=== PATIENT | male | born 1955 | race Two or more races ===

== ENCOUNTER 2018-12-30 09:26 | Emergency (ER) | payer OTHER ==
[2018-12-30 09:35] VITALS: BP 101/53
--- NOTE | 2018-12-30 10:12 | UC ---
Lower Extremity/Ankle HPI - HPI Summary HPI Summary: today pt fell frm 7-8 feet off of a ladder and injured lt ankle. reports swelling, pain, and some bruising. feels like he can't walk. - History of Current Complaint Chief Complaint: UCLowerExtremity Stated Complaint: LEG INJURY Time Seen by Provider: 12/30/18 10:05 Hx Obtained From: Patient Pain Intensity: 6 Pain Scale Used: 0-10 Numeric Aggravating Factor(s): Standing, Ambulation Alleviating Factor(s): Nothing - Allergies/Home Medications Allergies/Adverse Reactions: Allergies Allergy/AdvReac Type Severity Reaction Status Date / Time No Known Allergies Allergy Verified 12/30/18 09:35 PMH/Surg Hx/FS Hx/Imm Hx - Additional Past Medical History Additional PMH: no chronic conditions. Previously Healthy: Yes - Surgical History Surgical History: Yes Surgery Procedure, Year, and Place: 2013 RT HAND INJURY [place]. 2014 RT HAND FOREIGN BODY REMOVED [place] - Social History Alcohol Use: Occasionally Alcohol Amount: 1-2 BEERS/MONTH AT THE MOST Substance Use Type: None Smoking Status (MU): Former Smoker Amount Used/How Often: 1/2PPD OR LESS PER DAY 30 YRS Have You Smoked in the Last Year: No When Did the Patient Quit Smoking/Using Tobacco: 2009 Review of Systems All Other Systems Reviewed And Are Negative: Yes Skin: Positive: Bruising Motor: Positive: Decreased ROM - L ankle. Musculoskeletal: Positive: Arthralgia - L ankle., Decreased ROM - L ankle., Edema - L ankle.. Negative: Other: - denies back/hip pain Neurological: Negative: Weakness, Paresthesia Physical Exam Triage Information Reviewed: Yes Appearance: Well-Appearing Vital Signs: Initial Vital Signs Temp 98.3 F 12/30/18 09:31 Pulse 60 12/30/18 09:31 Resp 18 12/30/18 09:31 BP 101/53 12/30/18 09:31 Pulse Ox 97 12/30/18 09:31 Vital Signs Reviewed: Yes Cardiovascular: Positive: Brisk Capillary Refill - L toes Musculoskeletal: Positive: Strength Limited @ - L ankle. due to pain, ROM Limited @ - L ankle. due to pain, Edema @ - L ankle., Other: - NO BACK OR HIP TENDERNESS Neurological: Positive: Alert, Muscle Tone Normal Skin: Positive: Other - bruising at lateral aspect of ankle. Lower Extremity Course/Dx - Course Course Of Treatment: L calcaneal fracture after fall from ladder approx 7-8ft high. on xray appears to be comminuted. no back or hip involvement today; vitals good. neurovasculary intact at L foot. consulted w certified medication technician ortho/dr. mario who recommended CT and post. splint w/ web wrap/monica wrap layering to help w/ swelling. orin medication sent. - Differential Dx/Diagnosis Differential Diagnosis/HQI/PQRI: Contusion, Fracture (Closed), Fracture (Open) Provider Diagnosis: Calcaneal fracture Discharge - Sign-Out/Discharge Documenting (check all that apply): Patient Departure All imaging exams completed and their final reports reviewed: Yes - Discharge Plan Condition: Good Disposition: HOME Prescriptions: HYDROcodo/Acetam5/325MG PREPAK [HYDROcodone/ACETAMIN 5-325 MG* PREPAK] 1 tab PO Q6HR 7 Days #28 dae Ibuprofen [Ibu] 600 mg PO Q6HR 7 Days #28 tablet Patient Education Materials: Calcaneal Fracture (ED) Forms: *Work Release Referrals: Evan Mario MD [Medical Doctor] - 2 Days (LEFT CALCANEAL FRACTURE, NO BACK PAIN. SEE IMAGING. HOPING TO HAVE HIM SEEN tuesday) Additional Instructions: You should see the bone doctor on Tuesday for evaluation. - Billing Disposition and Condition Condition: GOOD Disposition: Home
== END 2018-12-30 12:15 | disposition home or self-care (01) ==
LOC: UCEAST 09:26
DX: S92.002A Unspecified fracture of left calcaneus, initial encounter for closed fracture (principal); W11.XXXA Fall on and from ladder, initial encounter; Y92.9 Unspecified place or not applicable; Z87.891 Personal history of nicotine dependence
CPT/HCPCS: 99212; G0463

== ENCOUNTER 2019-01-04 11:02 | Day surgery (SDC) | payer OTHER ==
[~2019-01-04 11:02] MED LIST: Buffered Lidocaine 1% SYRIN* 1 ML/SYRINGE INTRADERM ONE; Dexamethasone IV* 4 MG/ML 1 ML (4 MG) IV SLOW PU ONE; DiMENhydriNATE IV* 50 MG/ML VIAL IV PUSH PRN; Famotidine IV* 10 MG/ML 2 ML (20 mg) IV ONE; HYDROcodone/ACETAMIN 5-325 MG* 1 TAB PO PRN; Ketorolac INJ* 30 MG/ML 1 ML VIAL IV PRN; Lactated Ringers 1000 ML Bag* 1,000 ML IV SCH; Naloxone* 0.4 MG/ML 1 ML VIAL IV PRN; fentaNYL* 50 MCG/ML 2 ML VIAL (100 MCG VIAL) IV PRN; oxyCODONE/Acetamin 5/325 MG* TAB PO PRN
[2019-01-04] MEDS ORDERED: Dexamethasone IV* 4 MG/ML 1 ML (4 MG) ONE (11:21)
[2019-01-04] MEDS ORDERED: Famotidine IV* 10 MG/ML 2 ML (20 mg) ONE (11:21)
[2019-01-04] MEDS ORDERED: ceFAZolin 2 GM PREMIX in ORs 2 GM/50 ML BAG IVPB ONE (11:21)
[2019-01-04] MEDS ORDERED: Lidocaine 2% PF * 5 ML VIAL ONE (13:04)
[2019-01-04] MEDS ORDERED: fentaNYL* 50 MCG/ML 2 ML VIAL (100 MCG VIAL) ONE ×2 (13:04→15:37)
[2019-01-04] MEDS ORDERED: Propofol* 10 MG/ML 20 ML BTL ONE (13:04)
[2019-01-04] MEDS ORDERED: Midazolam* 1 MG/ML 2 ML VIAL (2 MG) ONE (13:04)
[2019-01-04] MEDS ORDERED: Bupivacaine 0.25% SDV PF* 10 ML VIAL INJ ONE (13:50)
[2019-01-04] MEDS ORDERED: EPHEDrine (Pressors)* 50 MG/ML VIAL ONE (14:16)
[2019-01-04] MEDS ORDERED: Ketorolac INJ* 30 MG/ML 1 ML VIAL ONE (14:33)
[2019-01-04] MEDS ORDERED: Ondansetron INJ* 2 MG/ML VIAL ONE (15:17)
--- NOTE | 2019-01-04 16:18 | OP ---
Operative Report - Blank - Operative Report Date of Operation: 01/04/19 Note: PATIENT: Veto Maya DATE OF : 1955 DATE OF SURGERY: 01/04/2019 SURGEON: Abhijeet Reynolds MD EVENT DECORATOR AND DESIGNER: NGA Grubbs, whos assistance was necessary for positioning, retraction, help with instrumentation, and closure. ANESTHESIOLOGIST: Dr. Parish Squires PREOPERATIVE DIAGNOSIS: Left calcaneus fracture POSTOPERATIVE DIAGNOSIS: Left calcaneus fracture OPERATION: Left calcaneus fracture open reduction and internal fixation. ANESTHESIA: General IMPLANTS: Arthrex comprehensive foot set plate and screws. TOURNIQUET TIME: Less than two hours with a well-padded thigh tourniquet at 250mmHg SPECIMENS: none ESTIMATED BLOOD LOSS: minimal COMPLICATIONS: none STATUS: Stable from the operating room to the recovery room and then home. INDICATIONS FOR PROCEDURE: Veto sustained a displaced calcaneus fracture. Both operative and non-operative treatment alternatives were reviewed. Further, the nature and risks of surgery were reviewed in careful detail, in the office as well as the pre-operative holding area. Our discussions regarding the risks of surgery included, but were not limited to, infection, wound problems, nerve injury, neuroma, RSD, persistent symptoms, blood clot, loss of fixation and reduction, malunion, nonunion, posttraumatic arthritis, persistent pain, skin breakdown, need for further surgery, failure of the surgery, and even the remote chance of catastrophic complication, including loss of limb. DESCRIPTION OF PROCEDURE: The patient was seen in the preoperative holding unit and informed written consent was obtained. The appropriate extremity was marked. The patient was then brought to the operating room and carefully positioned on the operating room table. Anesthesia was induced. All bony prominences were padded with great care. A well-padded thigh tourniquet was placed. A chlorhexidine based pre- scrub was performed followed by a chloraprep prep and drape in standard sterile fashion. A surgical safety pause was then conducted in which we confirmed the appropriate patient, extremity, planned procedure, availability of equipment, indication and administration of prophylactic antibiotics, and DVT prophylaxis in the form of a compression boot on the non-surgical extremity. I began with an Esmarch exsanguination of the limb and inflated the tourniquet. I utilized a sinus tarsi incision at the lateral hindfoot. I carefully dissected down to the level of the subtalar joint, making sure to protect the peroneal tendons. I exposed the fractures and used a Irizarry to loosen up the fracture fragments. Irrigation was used to remove fracture hematoma. I then reduced the fragments that involved the posterior facet. I placed K wires to hold the reduction. I then placed guidewires for 4.0 mm cannulated screws. The placement was confirmed fluoroscopically, measured, overdrilled, and screws were placed. This held the posterior facet well reduced. I then placed a Steinmann pin into the posterior aspect calcaneus to lever this fragment out of varus. Once this was achieved, k-wires were used to provisionally hold the reduction. I then placed an Arthrex calcaneus fracture plate laterally. Screws were placed through the plate into the fracture fragments. This held the calcaneus in satisfactory alignment. At this point, all provisional fixation was removed and final fluoroscopic images were obtained. I directly visualized the posterior facet of the calcaneus, and confirmed that no hardware crossed into the joint. The wound was then copiously irrigated and meticulously closed in layers utilizing 3-0 Monocryl and 3-0 Nylon for the skin. A sterile dressing was then applied followed by a splint with the ankle in a neutral position. The patient was then awakened from anesthesia and transferred to the recovery room in stable condition. There were no complications. All needle and sponge counts were correct at the end of the case. ATTESTATION: I attest I was present and scrubbed and performed the critical portions of the procedure myself. POSTOPERATIVE PLAN: The plan is for [id number] in a splint. Follow-up in 2 weeks for a wound check.
[2019-01-04 17:19] VITALS: BP 151/85
== END 2019-01-04 17:21 | disposition home or self-care (01) ==
LOC: OR 11:02
PROVIDERS: ATTEND Orthopaedic Surgery
DX: S92.012A Displaced fracture of body of left calcaneus, initial encounter for closed fracture (principal); W11.XXXA Fall on and from ladder, initial encounter; Y92.007 Garden or yard of unspecified non-institutional (private) residence as the place of occurrence of the external cause
CPT/HCPCS: 76000; C1713; C1776; J0690; J1100; J1885; J2250; J2405; J2704; J3010; J3490